=== PATIENT | male | born 1995 ===

== ENCOUNTER 2023-10-05 11:01 | Emergency (ER) | payer OTHER, SELFPAY ==
--- NOTE | 2023-10-05 16:17 | DI.CT.S_ITS ---
PROCEDURE: CT ABDOMEN PELVIS W CON INDICATIONS: abd pain, diarrhea TECHNIQUE: After the administration of intravenous contrast, axial sections acquired from the lung bases to the pubic symphysis. Coronal and sagittal reformats were performed. For radiation dose reduction, the following was used: automated exposure control, adjustment of mA and/or kV according to patient size. COMPARISON: None. FINDINGS: Image quality: Diagnostic. Lower Chest: No significant findings. ABDOMEN: Liver: No solid mass. Gallbladder: No radiopaque gallstones or wall thickening. Biliary ducts: No biliary dilation. Pancreas: No ductal dilation. Spleen: Size is within normal limits. Adrenal Glands: No adrenal nodules. Kidneys and Ureters: No hydronephrosis. No solid mass. No complex renal cystic lesion which requires follow up. Stomach and Bowel: Scattered areas of colonic wall thickening can be seen, including involving the entire ascending colon as well as a portion of the distal descending colon. A normal appendix is noted. No dilated loops of small bowel are seen. Peritoneum: No peritoneal abscess is seen. No abnormal intraperitoneal fluid. No free air. Ventral Wall: No significant ventral hernia. Abdominal Nodes: No retroperitoneal or mesenteric adenopathy by size criteria. Vessels: Aorta and inferior vena cava are normal in size. PELVIS: Pelvic Organs: Unremarkable. Bladder: No bladder wall thickening, accounting for underdistention. Pelvic Nodes: No enlarged lymph nodes. Miscellaneous: No inguinal hernias are seen. Bones: No aggressive osseous abnormality. IMPRESSION: Areas of colonic wall thickening can be seen, which are worst involving the ascending colon. Please correlate with potential infectious and inflammatory causes of colitis. No findings of perforation or abscess can be seen. Normal appendix. Dictated by: Gallito Davalos M.D. on 10/05/2023 at 15:38 Approved by: Gallito Davalos M.D. on 10/05/2023 at 15:40
--- NOTE | 2023-10-05 16:18 | ED_ITS ---
HPI - Abdominal Pain <Bita Arthur DO - Last Filed: 10/07/23 07:51> General Chief Complaint: Abdominal Pain Stated Complaint: loose stools cramping and vomiting Time Seen by Provider: 10/05/23 16:17 Source: patient, RN notes reviewed, old records reviewed and other Limitations: no limitations History of Present Illness HPI narrative: 28-year-old male with no reported medical issues, no prior surgeries who presents with complaint of diarrhea abdominal pain and cramping as well as nausea. Patient states he has been afebrile at home. Denies any chills or sweats. Denies any chest pain or shortness of breath, no syncope. Describes generalized abdominal pain that started more epigastric region in his more mid abdomen. States no back or flank pain. He still describes orange colored diarrhea 5 or 6 times daily which has been watery. He describes no black or bloody stools. No dysuria urgency or frequency. He states nausea but no vomiting. States no daily medications. No prior surgeries. No known drug allergies. He uses nicotine in the form of pouches, occasional alcohol but no regular. No illicit. Review of Systems <Bita Arthur DO - Last Filed: 10/07/23 07:51> Review of Systems ROS Unobtainable: All systems reviewed & are unremarkable except as noted in HPI and below Exam <Bita Arthur DO - Last Filed: 10/07/23 07:51> Narrative Exam Narrative: GENERAL: Alert and oriented x three, male in mild distress HEENT: Head normocephalic, atraumatic, EOMI, pupils reactive, face symmetric, moist mucous membranes NECK: Supple, full range of motion CARDIOVASCULAR: Regular rate and rhythm without murmurs, rubs or gallops. RESPIRATORY: Breath sounds equal bilaterally, no wheezes rales or rhonchi. ABDOMEN: Soft, generalized abdominal tenderness. Normoactive bowel sounds all 4 quadrants. No guarding or rebound, rigidity, no mass, no pulsatile mass or bruit. : No CVA tenderness EXTREMITIES: Normal range of motion, no clubbing or edema. Neurovascularly intact NEUROLOGICAL: Cranial nerves II through XII grossly intact. Moving all extremities SKIN: Warm, dry, no petechiae, no rashes or lesions. Initial Vital Signs Initial Vital Signs: Vital Signs Pulse Rate 86 10/05/23 19:30 Respiratory Rate 18 10/05/23 19:30 Blood Pressure 117/65 10/05/23 19:30 Pulse Oximetry 98 10/05/23 19:30 Oxygen Delivery Method Room Air 10/05/23 19:30 <Bita Patino MD - Last Filed: 10/06/23 04:04> Initial Vital Signs Initial Vital Signs: Vital Signs Pulse Rate 86 10/05/23 19:30 Respiratory Rate 18 10/05/23 19:30 Blood Pressure 117/65 10/05/23 19:30 Pulse Oximetry 98 10/05/23 19:30 Oxygen Delivery Method Room Air 10/05/23 19:30 Course <Bita Arthur DO - Last Filed: 10/07/23 07:51> Orders Ordered: Discontinued Medications Sodium Chloride (Normal Saline 0.9%) 1,000 mls @ 1,000 mls/hr IV BOLUS ONE Stop: 10/05/23 19:42 Last Admin: 10/05/23 19:25 Dose: 1,000 mls/hr Documented By: Acetaminophen (Ofirmev) 1,000 mg in 100 mls @ 400 mls/hr IV NOW ONE Stop: 10/05/23 18:57 Last Infusion: 10/05/23 20:01 Dose: Infused Documented By: Admin: 10/05/23 19:24 Dose: 400 mls/hr Documented By: Vital Signs Vital signs: Vital Signs - 8 hr 10/05/23 20:32 Temperature 98.2 F Pulse Rate 88 Respiratory Rate 18 Blood Pressure 118/75 Pulse Oximetry 100 Oxygen Delivery Method Room Air <Bita Patino MD - Last Filed: 10/06/23 04:04> Orders Ordered: Discontinued Medications Sodium Chloride (Normal Saline 0.9%) 1,000 mls @ 1,000 mls/hr IV BOLUS ONE Stop: 10/05/23 19:42 Last Admin: 10/05/23 19:25 Dose: 1,000 mls/hr Documented By: Acetaminophen (Ofirmev) 1,000 mg in 100 mls @ 400 mls/hr IV NOW ONE Stop: 10/05/23 18:57 Last Infusion: 10/05/23 20:01 Dose: Infused Documented By: Admin: 10/05/23 19:24 Dose: 400 mls/hr Documented By: Vital Signs Vital signs: Vital Signs - 8 hr 10/05/23 20:32 Temperature 98.2 F Pulse Rate 88 Respiratory Rate 18 Blood Pressure 118/75 Pulse Oximetry 100 Oxygen Delivery Method Room Air MDM - Abdominal Pain <Bitayesy Arthur, - Last Filed: 10/07/23 07:51> Lab Data 10/05/23 13:07 10/05/23 13:07 Labs: Lab Results 10/05/23 10/05/23 Range/Units 13:07 17:42 WBC 16.0 H (4.5-11.0) X10^3/uL RBC 5.10 (4.5-5.9) X10^6/uL Hgb 15.0 (13.5-17.5) g/dL Hct 44.1 (41-53) % MCV 86.5 (80-100) fL MCH 29.4 (26-34) PG MCHC 34.0 (30-36) % RDW 12.9 (11.6-14.8) % Plt Count 184 (150-400) X10^3/uL Neut % (Auto) 84.5 H (50-75) % Lymph % (Auto) 6.4 L (25-40) % [place] % (Auto) 9.0 (3-14) % Eos % (Auto) 0.0 L (2-4) % Baso % (Auto) 0.1 (0-2) % Neut # (Auto) 71653 H (9997-9570) /uL Lymph # (Auto) 1000 L (1951-5231) /uL [place] # (Auto) 1400 H (0-900) /uL Eos # (Auto) 0 (0-450) /uL Baso # (Auto) 0 (0-100) /uL Sodium 136 L (137-145) mmol/L Potassium 3.5 (3.4-5.1) mmol/L Chloride 100 (98-107) mmol/L Carbon Dioxide 28 (22-32) mmol/L BUN 14 (9-20) mg/dL Creatinine 1.36 H (0.66-1.25) mg/dL Estimated GFR > 60 (>60) mL/min BUN/Creatinine Ratio 10.3 (6-22) Glucose 100 (70-100) mg/dL Calcium 9.1 (8.4-10.2) mg/dL Total Bilirubin 0.8 (0.2-1.3) mg/dL AST 28 (17-59) IU/L ALT 24 (<50) IU/L Alkaline Phosphatase 72 (38-126) U/L Total Protein 7.4 (6.3-8.2) g/dL Albumin 4.3 (3.5-5.0) g/dL Globulin 3.1 (1.7-4.1) g/dL Albumin/Globulin Ratio 1.4 (1.0-2.8) Lipase 74 (23-300) U/L Urine Color Yellow Urine Appearance Clear Urine pH 7.0 (4.5-8.0) Ur Specific [place] 1.015 (1.000-1.035) Urine Protein 1+ H (Negative) Urine Glucose (UA) Negative (Negative) g/dL Urine Ketones 1+ H (NEGATIVE) Urine Occult Blood 2+ H (Negative) Urine Nitrate Negative (Negative) Urine Bilirubin Negative (NEGATIVE) Urine Urobilinogen 0.2 (0.2) E.U./dL Ur Leukocyte Esterase Negative (NEGATIVE) Urine RBC 10-30/hpf H (0-5/HPF) Urine WBC 0-1/hpf (0-5/HPF) Ur Squamous Epith Cells None seen (0-5/HPF) Urine Bacteria None seen (None) Ur Culture Indicated? Cult not indicated Vol Urine Centrifuged 10ml (spun) Stl C. cayetanensis PCR Not detected (Not Detect) Stool Rotavirus (PCR) Not detected (Not Detect) Stool Adenovirus (PCR) Not detected (Not Detect) Stool Astrovirus (PCR) Not detected (Not Detect) Stool Cryptosporidium PCR Not detected (Not Detect) Stl E.coli Shiga Tox PCR Not detected (Not Detect) St Sh/Enteroin Ecoli PCR Not detected (Not Detect) Stl Enterotoxigenic E PCR Not detected (Not Detect) Stool EPEC (PCR) Not detected (Not Detect) Stl E. histolytica PCR Not detected (Not Detect) Stool Giardia Lamblia PCR Not detected (Not Detect) Stool Sapovirus (PCR) Not detected (Not Detect) Stl P. shigelloides PCR Not detected (Not Detect) St Y.enterocolitica PCR Not detected (Not Detect) Stool Vibrio (PCR) Not detected (Not Detect) Stl Vibrio cholerae PCR Not detected (Not Detect) Stl Enteroaggr Ecoli PCR Not detected (Not Detect) Stl Norovirus GI/GII PCR Not detected (Not Detect) Campylobacter (PCR) Detected H (Not Detect) C. difficile Tox (PCR) Not detected (Not Detect) Salmonella (PCR) Not detected (Not Detect) Imaging Data CT scan - abdomen/pelvis: Radiologist's Impression: Areas of colonic wall thickening, worst involving ascending colon no perforation or abscess normal appendix. Otherwise unremarkable. MDM Narrative Medical decision making narrative: Patient's labs show white count of 16 hemoglobin of 15 platelets of 184, creatinine 1.36 with BUN of 14 glucose of 100 potassium 3.5 with a chloride of 100 sodium is 136 with CO2 of 28, bilirubin 0.8 with an AST of 28 alk-phos of 72 lipase is 74 ALT of 24. Urine positive for ketones 2+ blood, 1+ protein. 10-30 red cells, 0-1 white cells, no squamous no bacteria. Patient has generalized abdominal pain sort of epigastric into the mid abdomen. Creatinine is little bit elevated, I do not have any available for comparison for priors. Kidney stone is within differential but patient's pain does not seem as consistent. CT abdomen pelvis was obtained. Patient's blood pressure has has lowered over the timeframe that he has been here is 121/60 initially with a pulse in the 90s. Heart rates now in the 80s blood pressure was 90 systolic. Received a L fluid received a 2 L. Also received Zofran and Toradol. Patient states pain has been improved. He is attempting to give stool sample. CT shows areas of colonic wall thickening scattered throughout involving entire ascending colon. Consistent with colitis. Patient received fluids 2L of fluid. Zofran and Toradol. Pain has been controlled. Patient is able to stool sample and is pending. Signed out to Dr. Patino while awaiting GI panel. Dr. Patino - GI panel positive for Campylobacter. Patient reassessed, resting comfortably in ED bed. Patient counseled on results of his stool panel. Currently no antibiotics are recommended at this time. Patient also counseled against use of Imodium. Recommended maintaining hydration and conservative treatment as Campylobacter is usually self-limiting and resolves with a mean duration of symptoms of 7 days. ED return precautions discussed at bedside. Patient expressed understanding of the plan and is in agreement at this time. All questions answered at the time of discharge. <Bita A Sukumar, MD - Last Filed: 10/06/23 04:04> Lab Data Labs: Lab Results 10/05/23 10/05/23 Range/Units 13:07 17:42 WBC 16.0 H (4.5-11.0) X10^3/uL RBC 5.10 (4.5-5.9) X10^6/uL Hgb 15.0 (13.5-17.5) g/dL Hct 44.1 (41-53) % MCV 86.5 (80-100) fL MCH 29.4 (26-34) PG MCHC 34.0 (30-36) % RDW 12.9 (11.6-14.8) % Plt Count 184 (150-400) X10^3/uL Neut % (Auto) 84.5 H (50-75) % Lymph % (Auto) 6.4 L (25-40) % [place] % (Auto) 9.0 (3-14) % Eos % (Auto) 0.0 L (2-4) % Baso % (Auto) 0.1 (0-2) % Neut # (Auto) 23305 H (6962-9644) /uL Lymph # (Auto) 1000 L (3628-1452) /uL [place] # (Auto) 1400 H (0-900) /uL Eos # (Auto) 0 (0-450) /uL Baso # (Auto) 0 (0-100) /uL Sodium 136 L (137-145) mmol/L Potassium 3.5 (3.4-5.1) mmol/L Chloride 100 (98-107) mmol/L Carbon Dioxide 28 (22-32) mmol/L BUN 14 (9-20) mg/dL Creatinine 1.36 H (0.66-1.25) mg/dL Estimated GFR > 60 (>60) mL/min BUN/Creatinine Ratio 10.3 (6-22) Glucose 100 (70-100) mg/dL Calcium 9.1 (8.4-10.2) mg/dL Total Bilirubin 0.8 (0.2-1.3) mg/dL AST 28 (17-59) IU/L ALT 24 (<50) IU/L Alkaline Phosphatase 72 (38-126) U/L Total Protein 7.4 (6.3-8.2) g/dL Albumin 4.3 (3.5-5.0) g/dL Globulin 3.1 (1.7-4.1) g/dL Albumin/Globulin Ratio 1.4 (1.0-2.8) Lipase 74 (23-300) U/L Urine Color Yellow Urine Appearance Clear Urine pH 7.0 (4.5-8.0) Ur Specific [place] 1.015 (1.000-1.035) Urine Protein 1+ H (Negative) Urine Glucose (UA) Negative (Negative) g/dL Urine Ketones 1+ H (NEGATIVE) Urine Occult Blood 2+ H (Negative) Urine Nitrate Negative (Negative) Urine Bilirubin Negative (NEGATIVE) Urine Urobilinogen 0.2 (0.2) E.U./dL Ur Leukocyte Esterase Negative (NEGATIVE) Urine RBC 10-30/hpf H (0-5/HPF) Urine WBC 0-1/hpf (0-5/HPF) Ur Squamous Epith Cells None seen (0-5/HPF) Urine Bacteria None seen (None) Ur Culture Indicated? Cult not indicated Vol Urine Centrifuged 10ml (spun) Stl C. cayetanensis PCR Not detected (Not Detect) Stool Rotavirus (PCR) Not detected (Not Detect) Stool Adenovirus (PCR) Not detected (Not Detect) Stool Astrovirus (PCR) Not detected (Not Detect) Stool Cryptosporidium PCR Not detected (Not Detect) Stl E.coli Shiga Tox PCR Not detected (Not Detect) St Sh/Enteroin Ecoli PCR Not detected (Not Detect) Stl Enterotoxigenic E PCR Not detected (Not Detect) Stool EPEC (PCR) Not detected (Not Detect) Stl E. histolytica PCR Not detected (Not Detect) Stool Giardia Lamblia PCR Not detected (Not Detect) Stool Sapovirus (PCR) Not detected (Not Detect) Stl P. shigelloides PCR Not detected (Not Detect) St Y.enterocolitica PCR Not detected (Not Detect) Stool Vibrio (PCR) Not detected (Not Detect) Stl Vibrio cholerae PCR Not detected (Not Detect) Stl Enteroaggr Ecoli PCR Not detected (Not Detect) Stl Norovirus GI/GII PCR Not detected (Not Detect) Campylobacter (PCR) Detected H (Not Detect) C. difficile Tox (PCR) Not detected (Not Detect) Salmonella (PCR) Not detected (Not Detect) MDM Narrative Medical decision making narrative: Patient's labs show white count of 16 hemoglobin of 15 platelets of 184, creatinine 1.36 with BUN of 14 glucose of 100 potassium 3.5 with a chloride of 100 sodium is 136 with CO2 of 28, bilirubin 0.8 with an AST of 28 alk-phos of 72 lipase is 74 ALT of 24. Urine positive for ketones 2+ blood, 1+ protein. 10-30 red cells, 0-1 white cells, no squamous no bacteria. Patient has generalized abdominal pain sort of epigastric into the mid abdomen. Creatinine is little bit elevated, I do not have any available for comparison for priors. Kidney stone is within differential but patient's pain does not seem as consistent. CT abdomen pelvis was obtained. Patient's blood pressure has has lowered over the timeframe that he has been here is 121/60 initially with a pulse in the 90s. Heart rates now in the 80s blood pressure was 90 systolic. Received a L fluid received a 2 L. Also received Zofran and Toradol. Patient states pain has been improved. He is attempting to give stool sample. CT shows areas of colonic wall thickening scattered throughout involving entire ascending colon. Consistent with colitis. Patient received fluids. Zofran and Toradol. Pain has been controlled. Patient is able to stool sample and is pending. Signed out to Dr. Patino while awaiting GI panel. Dr. Patino - GI panel positive for Campylobacter. Patient reassessed, resting comfortably in ED bed. Patient counseled on results of his stool panel. Currently no antibiotics are recommended at this time. Patient also counseled against use of Imodium. Recommended maintaining hydration and conservative treatment as Campylobacter is usually self-limiting and resolves with a mean duration of symptoms of 7 days. ED return precautions discussed at bedside. Patient expressed understanding of the plan and is in agreement at this time. All questions answered at the time of discharge. Discharge Plan Departure Patient Disposition: Home Clinical Impression: Colitis, Creatinine elevation, Campylobacter diarrhea Instructions: DI for Diarrhea and Traveler's Diarrhea -- Adult Activity Restrictions/Additional Instructions: Your stool tested positive for Campylobacter, which is a food-borne bacteria. This will usually self resolve and does not need antibiotics. Make sure to stay hydrated and get plenty of electrolytes. You may notice small amount of blood in her stool, this can be normal with the Campylobacter infection. If you notice large amounts of blood or have worsening symptoms please feel free to return to the emergency department for repeat evaluation. Stand Alone Forms: Patient Portal/API
--- NOTE | 2023-10-05 16:28 | PC.NURSE ---
Patient ambulates to bathroom to provide stool sample, unsuccessful. Patient to CT with tech.
[2023-10-05 18:16] LABS: Alanine Aminotransferase 24 IU/L (<50); Albumin 4.3 g/dL (3.5-5.0); Albumin Globulin Ratio 1.4 (1.0-2.8); Alkaline Phosphatase 72 U/L (38-126); Aspartate Aminotransferase 28 IU/L (17-59); BUN Creatinine Ratio 10.3 (6-22); Bilirubin Total 0.8 mg/dL (0.2-1.3); Blood Urea Nitrogen 14 mg/dL (9-20); Calcium 9.1 mg/dL (8.4-10.2); Carbon Dioxide 28 mmol/L (22-32); Chloride 100 mmol/L (98-107); Estimated Glomerular Filt Rate > 60 mL/min (>60); Globulin 3.1 g/dL (1.7-4.1); Glucose 100 mg/dL (70-100); HEMOLYSIS < 15 (0-50); Lipase 74 U/L (23-300); Potassium 3.5 mmol/L (3.4-5.1); Sodium 136 mmol/L (137-145); Total Protein 7.4 g/dL (6.3-8.2)
[2023-10-05 18:17] LABS: Add Manual Diff / Slide Review NO; Basophils Absolute Auto 0 /uL (0-100); Basophils Percent Auto 0.1 % (0-2); Eosinophils Absolute Auto 0 /uL (0-450); Hematocrit 44.1 % (41-53); Lymphocytes Absolute Auto 1000 /uL (1100-4500); Lymphocytes Percent Auto 6.4 % (25-40); Mean Corpuscular Hemoglobin 29.4 PG (26-34); Mean Corpuscular Volume 86.5 fL (80-100); Monocytes Absolute Auto 1400 /uL (0-900); Neutrophils Absolute Auto 13500 /uL (1500-7000); Neutrophils Percent Auto 84.5 % (50-75); Platelet Count 184 X10^3/uL (150-400); Red Cell Distribution Width 12.9 % (11.6-14.8)
[2023-10-05 18:18] LABS: Appearance Urine UA Clear; Bilirubin Urine UA Negative (NEGATIVE); Color Urine UA Yellow; Glucose Urine UA NEGATIVE (Negative); Ketones Urine UA 1+ (NEGATIVE); Leukocyte Esterase Urine UA NEGATIVE (NEGATIVE); Nitrite Urine UA NEGATIVE (Negative); Occult Blood Urine UA 2+ (Negative); Protein Urine UA 1+ (Negative); RBC Urine 10-30/HPF (0-5/HPF); Specific Gravity Urine UA 1.015 (1.000-1.035); Urine Volume 10mL (spun); Urobilinogen Urine UA 0.2 E.U./dL (0.2); WBC Urine 0-1/HPF (0-5/HPF)
[2023-10-05 18:19] LABS: Bacteria Urine None Seen; Culture Indicated Urine Cult Not Indicated; Squamous Epithelial Cell Urine None Seen (0-5/HPF)
[2023-10-05] MEDS: ACETAMINOPHEN IV 1,000 MG/100 ML VIAL 400 MG IV (19:24)
[2023-10-05] MEDS: SODIUM CHLORIDE 0.9% 1,000 ML 1000 ML IV (19:25)
[2023-10-05 19:30] VITALS: BP 117/65; PULSE 86; RESP 18; O2SAT 98
--- NOTE | 2023-10-05 19:41 | PC.NURSE ---
Pt up ambulating in [place] to [place]. Steady gait noted.
[2023-10-05 19:53] LABS: Campylobacter Detected (Not Detect); Clostridium difficile toxin AB Not Detected (Not Detect); Enteroaggregative E.coli Not Detected (Not Detect); Enteropathogenic E.coli Not Detected (Not Detect); Plesiomonsa shigelloides Not Detected (Not Detect); Salmonella Not Detected (Not Detect); Vibrio Not Detected (Not Detect); Vibrio cholerae Not Detected (Not Detect); Yersinia enterocolitica Not Detected (Not Detect)
[2023-10-05 19:54] LABS: Adenovirus F 40/41 Not Detected (Not Detect); Astrovirus Not Detected (Not Detect); Cryptosporidium Not Detected (Not Detect); Cyclospora cayetanensis Not Detected (Not Detect); Entamoeba histolytica Not Detected (Not Detect); Enterotoxigenic E.coli It/st Not Detected (Not Detect); Giardia lamblia Not Detected (Not Detect); Norovirus GI/GII Not Detected (Not Detect); Rotavirus A Not Detected (Not Detect); Sapovirus Not Detected (Not Detect); Shiga-like toxin-prod E.coli Not Detected (Not Detect); Shigella/Enteroinvasive E.coli Not Detected (Not Detect)
[2023-10-05 20:32] VITALS: BP 118/75; PULSE 88; RESP 18; TEMP 36.8; O2SAT 100
== END 2023-10-05 20:34 | disposition home or self-care (01) ==
PROVIDERS: Emergency Provider Emergency Medicine
DX: A04.5 Campylobacter enteritis (principal); R94.4 Abnormal results of kidney function studies
CPT/HCPCS: 74177; 80053; 81001; 83690; 85025; 87507; 96365; 99283; 99284; J0136; Q9967